=== PATIENT | female | born 1980 | race Caucasian/White ===

== ENCOUNTER 2020-04-09 06:50 | Day surgery (SDC) | payer BC ==
[2020-04-09 10:08] VITALS: BP 105/52
[2020-04-09] MEDS ORDERED: PROPOFOL INJ 200 MG/20 ML VIAL IV ONE (10:44)
--- NOTE | 2020-04-09 10:54 | Operative Report ---
Operative Report DATE OF SURGERY: 04/09/20 Operative Report: The risk, benefits and alternatives of the procedure including the risk of bleeding, perforation requiring surgery have been explained to the patient in detail and informed consent has been obtained. The patient is taken back to the endoscopy suite and placed in the left, lateral decubital position. Timeout was called. Propofol medication is administered. Rectal examination is done which did not reveal any masses, tears or fissures. An Olympus videoscope was introduced into the patient's rectum. Scope was then carefully advanced all the way to the cecum. The cecum was identified by the usual anatomical landmarks of the ileocecal valve as well as the appendiceal office. Photodocumentation is obtained. The scope was then sequentially pulled back via the various segments of the colon including the ascending colon, hepatic flexure, transverse colon, splenic flexure, descending colon finally in to the rectosigmoid portions of the colon. Retroflexion maneuver is performed. The risks benefits and alternatives of the procedure explained to the patient in detail and informed consent is obtained.A GIF Olympus video scope was inserted into the patient's mouth and hypopharynx, the esophagus is identified intubated and insufflated, the scope was then advanced through the esophagus stomach and duodenum, retroflexion maneuver is done ,the esophagus stomach and first and second portions of the duodenum examined PREOPERATIVE DIAGNOSIS: Change in bowel habits. Dysphagia POSTOPERATIVE DIAGNOSIS: Random biopsies on the right side of the colon rule out collagenous colitis. Internal hemorrhoids. Small hiatal hernia. Gastritis status post biopsy. Esophagitis status post biopsy possible Schatzki's ring that is broken OPERATION: Colonoscopy biopsy. EGD with biopsy SURGEON: DONNA WISEMAN ANESTHESIA: LMAC TISSUE REMOVED OR ALTERED: As noted above. COMPLICATIONS: None. ESTIMATED BLOOD LOSS: None. INTRAOPERATIVE FINDINGS: As noted above. PROCEDURE: Patient tolerated the procedure well. No immediate postprocedure complications are noted. Patient is discharged in good condition. Discharge date 04/09/2020. Discharge diet: Regular. Discharge activity: Regular. 2 to 3-week follow-up to discuss findings. Patient is instructed call the office or proceed to the emergency room should there be any further problems or questions. Wait on the pathology.
== END 2020-04-09 09:57 | disposition home or self-care (01) ==
LOC: END 06:50
PROVIDERS: ATTEND Internal Medicine Gastroenterology
DX: K29.50 Unspecified chronic gastritis without bleeding (principal); K64.8 Other hemorrhoids; K44.9 Diaphragmatic hernia without obstruction or gangrene; K52.9 Noninfective gastroenteritis and colitis, unspecified; K21.00 Gastro-esophageal reflux disease with esophagitis, without bleeding; Z20.828 Contact with and (suspected) exposure to other viral communicable diseases; Z79.899 Other long term (current) drug therapy
CPT/HCPCS: 43239; 45380; 88342 ×2; 88305 ×2; J2704; 813